=== PATIENT | female | born 1955 | race Caucasian/White ===

== ENCOUNTER 2017-05-23 09:33 | Emergency (ER) | payer MEDICAID ==
[~2017-05-23] VITALS: Ht 154.9 cm; Wt 62.8 kg
--- NOTE | 2017-05-23 09:49 | NUR ---
Eber jang in [facility] - 05/23/17 at 0951 by [facility] Pt placed in bed 3.
--- NOTE | 2017-05-23 09:51 | NUR ---
Eber jang in [facility] - 05/23/17 at 1008 by [facility] RT BEDSIDE FOR TREATMENT
[2017-05-23 10:02] VITALS: BP 151/95
--- NOTE | 2017-05-23 10:08 | NUR ---
PT AMBULATED TO [facility]
--- NOTE | 2017-05-23 10:19 | NUR ---
PATIENT PRESENTS TO ED WITH C/O BURNETT SP FALL TODAY;BUMP NOTED ON POSTERIOR HEAD;SHONDA BLEEDING NOTED;DENIES LOC/VOMITING;DENIES DIZZINESS,N/V/D; SKIN IS PINK/WARM/DRY; AAOX4 WITH EVEN AND STEADY GAIT; LUNGS CLEAR BL; HR EVEN AND REGULAR; PT DENIES ANY FEVER, CP, SOB, OR COUGH AT THIS TIME; PATIENT POSITIONED FOR COMFORT; ER MD MADE AWARE OF PT STATUS.
--- NOTE | 2017-05-23 10:42 | NUR ---
DR PINEDA EVALUATING PT AT BEDSIDE
[2017-05-23] MEDS ORDERED: KETOROLAC 60 MG/2 ML VIAL IM ONE (11:05)
--- NOTE | 2017-05-23 11:17 | NUR ---
PT TAKEN TO CT
[2017-05-23 11:58] VITALS: BP 148/93
--- NOTE | 2017-05-23 11:58 | NUR ---
Patient discharged with v/s stable. Written and verbal after care instructions given and explained. Patient alert, oriented and verbalized understanding of instructions. Ambulatory with to car. All questions addressed prior to discharge. ID band removed. Patient advised to follow up with PMD. Rx of IBUPROFEN given. Patient educated on indication of medication including possible reaction and side effects. Opportunity to ask questions provided and answered.
== END 2017-05-23 11:58 | disposition home or self-care (01) ==
LOC: MED 09:33
DX: S00.03XA Contusion of scalp, initial encounter (principal); R03.0 Elevated blood-pressure reading, without diagnosis of hypertension; W01.0XXA Fall on same level from slipping, tripping and stumbling without subsequent striking against object, initial encounter; Y93.E5 Activity, floor mopping and cleaning; Y92.098 Other place in other non-institutional residence as the place of occurrence of the external cause; Y99.8 Other external cause status
CPT/HCPCS: 70450; 72125; 96372; 99284; J1885

== ENCOUNTER 2018-04-22 18:02 | Emergency (ER) | payer MEDICAID ==
[~2018-04-22] VITALS: Ht 152.4 cm; Wt 60.9 kg
[2018-04-22 18:22] VITALS: BP 154/97
--- NOTE | 2018-04-22 20:10 | NUR ---
PT TO ER BED 6
--- NOTE | 2018-04-22 20:17 | NUR ---
PT PRESENTS TO ED WITH C/O COLD SYMPTOMS AND COUGH X 1 MONTH. PT DENIES SOB AT THIS TIME. LUNG SOUNDS CLEAR TO ASCULTATION. NO S/S OF RESPIRATORY DISTRESS AT THIS TIME. PT PLACED INTO BED, PENDING MD MILLER.
[2018-04-22] MEDS: ACETAMIN/CODEINE 120/12MG-5ML 5 ML UDC PO ONE (20:44)
[2018-04-22 20:59] VITALS: BP 154/97
--- NOTE | 2018-04-22 20:59 | NUR ---
Patient discharged with v/s stable. Written and verbal after care instructions given and explained. Patient alert, oriented and verbalized understanding of instructions. Ambulatory with steady gait. All questions addressed prior to discharge. ID band removed. Patient advised to follow up with PMD. Rx of AZITHROMYCIN, PREDNISONE, GUIATUSSIN given. Patient educated on indication of medication including possible reaction and side effects. Opportunity to ask questions provided and answered.
== END 2018-04-22 20:59 | disposition home or self-care (01) ==
LOC: MED 18:02
DX: J40 Bronchitis, not specified as acute or chronic (principal); I10 Essential (primary) hypertension; Z90.710 Acquired absence of both cervix and uterus
CPT/HCPCS: 71045; 99283; Q0092